=== PATIENT | male | born 1990 | race Caucasian/White ===

== ENCOUNTER → 2021-08-18 | Outpatient (CLI) | payer OTHER | LOC: EMI 10:00 | DX: G40.019 Localization-related (focal) (partial) idiopathic epilepsy and epileptic syndromes with seizures of localized onset, intractable, without status epilepticus (principal); J32.0 Chronic maxillary sinusitis | CPT/HCPCS: 70553; A9577 ==

== ENCOUNTER → 2021-09-14 | Outpatient (CLI) | payer OTHER ==
[2021-09-14 10:14] LABS: GLUCOSE,CSF 52 mg/dL (50-80); TOTAL PROTEIN,CSF 40 mg/dL (20-45)
[2021-09-14 10:56] LABS: WBC (AUTOMATED 2 10^3 (0-5)
[2021-09-14 10:57] LABS: WBC (AUTOMATED 1 10^3 (0-5)
[2021-09-15 14:10] LABS: CSF IGG INDEX 0.5 (0.0-0.7); IMMUNOGLOBULIN G, QN, SERUM 1312 mg/dL (603-1613)
[2021-09-16 16:12] LABS: MYELIN BASIC PROTEIN, CSF 3.5 ng/mL (0.0-3.8)
== END ==
LOC: RAD 07:27
PROVIDERS: Psychiatry & Neurology Neurology
DX: G40.019 Localization-related (focal) (partial) idiopathic epilepsy and epileptic syndromes with seizures of localized onset, intractable, without status epilepticus (principal)
CPT/HCPCS: 82040; 82784; 82945; 83873; 83916; 84157; 87015; 87070; 87116; 87205; 87210; 89051